=== PATIENT | female | born 1980 | race African-American/Black ===

== ENCOUNTER 2017-07-09 12:37 | Emergency (ER) | payer OTHER ==
[2017-07-09 12:42] VITALS: BP 143/91; BMI 27.3
[2017-07-09] MEDS ORDERED: ACETAMINOPHEN 325 MG TABLET (FP) PO ONE (12:43)
[2017-07-09] MEDS ORDERED: IBUPROFEN 400 MG TABLET (FP) PO ONE ×2 (13:12→13:17)
--- NOTE | 2017-07-09 13:20 | PDOC ---
History of Present Illness - General Chief Complaint: Cold Symptoms Stated Complaint: PAIN/ NECK, BACK, HEAD Time Seen by Provider: 07/09/17 12:58 History Source: Patient Exam Limitations: No Limitations - History of Present Illness Initial Comments: 07/09/17 13:13 This is a 36-year-old woman without significant past medical history of presents emergency department today with fevers, chills, headache, backaches, sore throat, rhinorrhea, nasal congestion for the past 24 hours. Patient also reports a productive cough with white sputum. She denies being around anybody who has been experiencing similar symptoms. Patient states she had one episode of posttussive vomiting yesterday which was nonbloody and nonbilious and consisted mostly of undigested food. She denies chest pain and shortness of breath. PMH: Denies PSH: Hernia repair 2014 PMD: Emily Forrest Tobacco: Denies EtOH: Denies Illicits: Denies Patient denies any recent travel outside the [place] within the past 30 days or contact with anyone or [facility] in the past 30 days. Timing/Duration: reports: yesterday Past History - Past Medical History Allergies/Adverse Reactions: Allergies Allergy/AdvReac Type Severity Reaction Status Date / Time No Known Allergies Allergy Verified 07/09/17 12:42 Home Medications: Ambulatory Orders No122/Iron/Folic Acid [ Multi Tablet] 1 each PO DAILY 06/01/15 Oseltamivir Phosphate [Tamiflu -] 75 mg PO BID #10 capsule 07/09/17 COPD: No - Surgical History Abdominal Surgery: Yes (UMBILICAL HERNIA) - Suicide/Smoking/Psychosocial Hx Smoking History: Never smoked Have you smoked in the past 12 months: No Hx Alcohol Use: No Drug/Substance Use Hx: No Substance Use Type: None Review of Systems - Review of Systems Able to Perform ROS?: Yes Is the patient limited Tamazight proficient: No Constitutional: Yes: See HPI HEENTM: Yes: See HPI Respiratory: Yes: See HPI Cardiac (ROS): No: Symptoms Reported ABD/GI: Yes: See HPI : No: Symptoms Reported Musculoskeletal: Yes: See HPI Integumentary: No: Symptoms Reported Neurological: No: Symptoms reported Endocrine: No: Symptoms Reported *Physical Exam - Vital Signs Last Vital Signs Temp Pulse Resp BP Pulse Ox 102.0 F H 122 H 20 143/91 100 07/09/17 12:38 07/09/17 12:38 07/09/17 12:38 07/09/17 12:38 07/09/17 12:38 - Physical Exam General Appearance: Yes: Appropriately Dressed. No: Apparent Distress HEENT: positive: [place], Normal Voice, TMs Normal, Pharynx Normal, Nasal Congestion, Rhinorrhea, Hearing Grossly Normal. negative: Tonsillar Exudate, Tonsillar Erythema, Sinus Tenderness, TM Bulging, TM Erythema, Excessive drooling Neck: positive: Trachea midline, Supple Respiratory/Chest: positive: Lungs Clear, Normal Breath Sounds. negative: Respiratory Distress, Accessory Muscle Use Cardiovascular: positive: Regular Rhythm, Regular Rate, S1, S2. negative: Murmur Gastrointestinal/Abdominal: positive: Normal Bowel Sounds, Soft. negative: Tender Musculoskeletal: positive: Normal Inspection, Other. negative: CVA Tenderness Integumentary: positive: Normal Color, Dry, Warm Neurologic: positive: weblogic administrator II-XII NML intact, Fully Oriented, Alert, Normal Mood/ Affect, Normal Response, Motor Strength 11/11 ED Treatment Course - Medications Given in the ED: ED Medications Discontinued Medications Generic Name Dose Route Start Last Admin Trade Name Freq PRN Reason Stop Dose Admin Acetaminophen 650 mg 07/09/17 12:43 07/09/17 12:44 Tylenol - PO 07/09/17 12:44 650 mg NOW ONE Administration Medical Decision Making - Medical Decision Making 07/09/17 13:17 A/P: This is a 36-year-old woman without significant past medical history of presents emergency department today with fevers, chills, headache, backaches, sore throat, rhinorrhea, nasal congestion for the past 24 hours. Patient also reports a productive cough with white sputum. She denies being around anybody who has been experiencing similar symptoms. Patient states she had one episode of posttussive vomiting yesterday which was nonbloody and nonbilious and consisted mostly of undigested food. She denies chest pain and shortness of breath. TMs pearly alvarado with appropriate light reflex. There is no tenderness to palpation over sinuses. Dilution the oropharynx reveals no erythema or exudates. Uvula midline. There is no cervical lymphadenopathy present. Lungs clear to auscultation bilaterally. RRR. S1 and S2 present. No murmurs, rub or gallop. Abdomen soft nontender nondistended. There is no rash or lesions noted to skin. Cranial nerves II through XII intact. Differential diagnosis includes upper respiratory infection versus influenza Given the patient is febrile upon arrival I will give the patient's 800 mg of Motrin once urine is negative. Given the patient is coughing I will do a chest x-ray to rule out a pneumonia. I'll perform influenza testing of the nasopharynx. I will reevaluate the patient after all testing has been completed. 07/09/17 14:10 Nasal pharyngeal swab positive for influenza A. I'll prescribe Tamiflu 75 mg twice a day for 5 days. I will instruct the patient on how to treat her symptoms to feel better instructed to avoid women and young children until her symptoms resolve. *DC/Admit/Observation/Transfer Diagnosis at time of Disposition: Influenza A - Discharge Dispostion Disposition: HOME Condition at time of disposition: Stable Admit: No - Prescriptions Prescriptions: Oseltamivir Phosphate [Tamiflu -] 75 mg PO BID #10 capsule - Referrals Referrals: Emily Forrest [Primary Care Provider] - - Patient Instructions Printed Discharge Instructions: DI for Influenza -- Adult Additional Instructions: Take Tylenol as directed by manufacturers instructions for fever and/or pain. Take phenylephrine as directed by manufacturers instructions for nasal congestion. Take guaifenesin as directed by manufacturers instructions to help with cough. All of these medicines together are collectively known as Dayquil, Tylenol Cold and flu or [place] cold and flu. Keep well-hydrated. Avoid contact with women and children anterior symptoms have resolved. Take Tamiflu 75 mg twice a day for the next 5 days. This medicine will shorten the amount of time Urex praising symptoms. Return to emergency department for worsening fevers, cough, shortness of breath , dizziness, chest pain or any other concerns. Thank you very much for choosing us to provide your emergent healthcare needs. - Post Discharge Activity
[2017-07-09 14:16] VITALS: PULSE 85; TEMP 99.1
== END 2017-07-09 14:25 | disposition home or self-care (01) ==
LOC: JERFT 12:37
DX: J10.1 Influenza due to other identified influenza virus with other respiratory manifestations (principal)
CPT/HCPCS: 71020-TC; 84703; 87804; 99281-25